=== PATIENT | female | born 1995 | race Two or more races ===

== ENCOUNTER 2024-04-23 22:17 | Emergency (ER) | payer SELFPAY ==
[~2024-04-23] VITALS: Ht 167.6 cm; Wt 79.0 kg
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
[2024-04-23] MEDS: ONDANSETRON HCL 4 MG/2 ML VIAL IV ONE (23:33)
[2024-04-23] MEDS: SODIUM CHLORIDE 0.9% 1,000 ML IV ONE (23:33)
[2024-04-23 23:56] LABS: Amphetamine Screen, Urine Neg (NEGATIVE); Barbiturate Scree,Urine Neg (NEGATIVE); Benzodiazephine Screen, Urine Neg (NEGATIVE); Cannabinoid Screen, Urine Neg (NEGATIVE); Cocaine Screen, Urine Pos (NEGATIVE); Opiate Scree,Urine Neg (NEGATIVE); Phencyclidine Screen, Urine Neg (NEGATIVE)
[2024-04-24 00:16] VITALS: PULSE 99; RESP 15; O2SAT 99
--- NOTE | 2024-04-24 00:30 | DVH ---
CLINICAL HISTORY: headache, fall, overdose TECHNIQUE: Helical imaging carried out from skull base to vertex without intravenous contrast. This e xam was performed according to our departmental dose optimization program. Up-to-date CT equipment an d radiation dose reduction techniques are utilized as appropriate. CTDIVol: 62.07 mGy DLP: 994.9 mGy-cm WID: COMPARISON: None FINDINGS: The ventricles and subarachnoid spaces are normal in size and configuration. There is no midline aldo ft or mass effect. The huggins white matter interfaces are maintained. The basal cisterns are patent. Th ere is no evidence of acute intracranial hemorrhage or extra-axial fluid collection. The mastoid air cells and visualized paranasal sinuses are well-aerated aside from mild mucosal thickening of the eth moid air cells. IMPRESSION: No acute intracranial abnormality.
[2024-04-24] MEDS: KETOROLAC TROMETH 30 MG/ML 1ML VIAL IV ONE (01:57)
[2024-04-24 03:10] VITALS: BP 124/75; PULSE 71; RESP 16; TEMP 97.6; O2SAT 96
--- NOTE | 2024-04-24 03:29 | DVH ---
Examination: CXR1 Clinical Indication: POST COMPRESSIONS Comparison: None. Technique: Frontal radiograph of the chest was obtained. Findings: Lungs are clear and well expanded with no pulmonary infiltrate or pleural effusion. There is no pneumothorax. The cardiomediastinal silhouette is within normal limits. No acute osseous abnormality is seen. Impression: No acute cardiopulmonary disease is seen. Electronically Signed 04/24/2024 03:28 Radha Rich
== END 2024-04-24 04:13 | disposition home or self-care (01) ==
LOC: ER 22:17 → EDBD 22:17 → ER 04-24 04:11
DX: S09.90XA Unspecified injury of head, initial encounter (principal); F19.10 Other psychoactive substance abuse, uncomplicated; Z79.899 Other long term (current) drug therapy; X58.XXXA Exposure to other specified factors, initial encounter; Y93.89 Activity, other specified; Y92.89 Other specified places as the place of occurrence of the external cause; Y99.8 Other external cause status
CPT/HCPCS: 70450; 71045; 80307; 96361; 96374; 96375; 99285; J1885; J2405

== ENCOUNTER 2024-04-24 17:37 | Emergency (ER) | payer SELFPAY ==
[~2024-04-24] VITALS: Ht 162.6 cm; Wt 66.0 kg
[2024-04-24] MEDS ORDERED: PROCHLORPERAZINE EDISYLATE 5 MG/ML 2ML VIAL IV ONE (17:45)
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
[2024-04-24 17:49] VITALS: BP 125/85; PULSE 101; RESP 17; O2SAT 100
== END 2024-04-24 18:24 | disposition left against medical advice (07) ==
LOC: EDBD 17:37 → ER 17:37
DX: S09.90XA Unspecified injury of head, initial encounter (principal); F19.10 Other psychoactive substance abuse, uncomplicated; F17.210 Nicotine dependence, cigarettes, uncomplicated; F12.90 Cannabis use, unspecified, uncomplicated; F15.90 Other stimulant use, unspecified, uncomplicated; V89.2XXA Person injured in unspecified motor-vehicle accident, traffic, initial encounter; Y93.89 Activity, other specified; Y92.89 Other specified places as the place of occurrence of the external cause; Y99.8 Other external cause status